=== PATIENT | female | born 1945 | race Two or more races ===

== ENCOUNTER 2018-09-20 11:48 | Outpatient (CLI) | payer OTHER | END 2018-09-20 15:46 | disposition home or self-care (01) | LOC: RAD 11:48 → MRI 12:15 → RAD 15:46 | DX: M25.561 Pain in right knee (principal); M25.562 Pain in left knee | CPT/HCPCS: 73721 ==

== ENCOUNTER 2019-09-21 11:29 | Outpatient (CLI) | payer OTHER ==
[2019-09-21] MEDS ORDERED: ADVIL100 M1 PO (12:10)
== END 2019-09-21 12:45 | disposition home or self-care (01) ==
LOC: LAB 11:29
PROVIDERS: ATTEND Orthopaedic Surgery
DX: I49.8 Other specified cardiac arrhythmias (principal); I10 Essential (primary) hypertension; Z76.89 Persons encountering health services in other specified circumstances; D64.89 Other specified anemias; E88.89 Other specified metabolic disorders; D68.8 Other specified coagulation defects; N39.0 Urinary tract infection, site not specified; Z22.322 Carrier or suspected carrier of Methicillin resistant Staphylococcus aureus

== ENCOUNTER 2019-09-27 06:39 | Day surgery (SDC) | payer OTHER ==
[~2019-09-27 06:39] MED LIST: ADVIL100 M1 PO
== END 2019-09-27 18:20 | disposition home or self-care (01) ==
LOC: CIR.AMB 06:39 → AMB-ENDOS 09:00 → CIR.AMB 09:00
PROVIDERS: ATTEND Orthopaedic Surgery
DX: M75.121 Complete rotator cuff tear or rupture of right shoulder, not specified as traumatic (principal); M75.41 Impingement syndrome of right shoulder; M24.511 Contracture, right shoulder; M65.811 Other synovitis and tenosynovitis, right shoulder

== ENCOUNTER 2022-01-03 11:51 | Outpatient (CLI) | payer OTHER | END 2022-01-03 11:54 | disposition home or self-care (01) | LOC: MRI 11:51 | PROVIDERS: ATTEND Family Medicine | DX: M25.562 Pain in left knee (principal); S80.912A Unspecified superficial injury of left knee, initial encounter | CPT/HCPCS: 73721 ==